=== PATIENT | female | born 2005 | race Caucasian/White ===

== ENCOUNTER 2025-05-04 11:10 | Outpatient (CLI) | payer BC, SELFPAY | END 2025-05-04 11:11 | disposition home or self-care (01) | PROVIDERS: Visit Provider Family Medicine | DX: R10.13 Epigastric pain (principal); R11.2 Nausea with vomiting, unspecified; R63.4 Abnormal weight loss; Z13.810 Encounter for screening for upper gastrointestinal disorder | CPT/HCPCS: 80053; 82784; 84439; 84443; 86231; 86258; 86364 ==